=== PATIENT | female | born 1950 | race African-American/Black ===

== ENCOUNTER 2018-05-14 23:29 | Emergency (ER) | payer MEDICARE, MEDICAID | END 2018-05-15 00:29 | disposition home or self-care (01) | LOC: NAV ERS 23:29 | DX: M25.562 Pain in left knee (principal); M25.561 Pain in right knee; K21.9 Gastro-esophageal reflux disease without esophagitis; E78.1 Pure hyperglyceridemia; E66.9 Obesity, unspecified; I10 Essential (primary) hypertension; Z79.899 Other long term (current) drug therapy; Z79.82 Long term (current) use of aspirin | CPT/HCPCS: 99283 ==